=== PATIENT | male | born 1965 | race Caucasian/White ===

== ENCOUNTER 2023-02-18 02:46 | Day surgery (SDC) | payer OTHER, SELFPAY ==
[2023-02-10 11:58] VITALS: BMI 31.1
--- NOTE | 2023-02-17 12:11 | P.PNAN_ITS ---
Anes - Initial Pre Proc Eval Procedure: Operation Date: 02/18/23 09:00 Proposed Procedures p Colonoscopy - Filipe Patton MD Date/Time: 02/17/23 12:11 Surgeon: Filipe Patton MD Pre Op Diagnosis: family hx colon ca, hx colon polyps Patient Data Age: 57 Gender: M Height: 1.91 m Weight: 113 kg Allergies Allergy/AdvReac Type Severity Reaction Status Date / Time No Known Allergies Allergy Unknown Verified 02/18/23 08:02 Home Medications Medication Instructions Recorded Confirmed Type levothyroxine 175 mcg tablet 175 mcg PO DAILY 09/10/19 02/10/23 History (Synthroid) losartan 50 mg tablet 50 mg PO DAILY 09/10/19 02/10/23 History naproxen sodium 220 mg capsule 220 mg PO Q12H PRN Back Pain 09/10/19 02/10/23 History (Aleve) testosterone cypionate 200 mg/mL 200 mg IM [id number] 09/10/19 02/10/23 History intramuscular oil aspirin 81 mg tablet,delayed 81 mg PO DAILY 02/10/23 02/10/23 History release tamsulosin 0.4 mg capsule 0.4 mg PO DAILY 02/10/23 02/10/23 History Patient hx anesthesia problems: none Family hx anesthesia problems: none Results Review: All pre-operative results and documents have been reviewed as part of the pre-operative evaluation. [facility] Past Medical History Medical History (Updated 02/17/23 @ 19:42 by Filipe Patton MD) Hypertension Hypothyroidism Sleep apnea Surgical History Surgical History (Updated 09/14/19 @ 08:27 by Antoni Pearson MD) H/O arthroscopic knee surgery Family History Family History Other Family history of arthritis Hypertension Social History Social History Years smoked: 1 Smoking status: Former smoker Tobacco type: cigarettes Additional smoking assessment comments: smoked as a teenager Alcohol intake: current Living arrangements: with family Spiritual care concerns: No Anes - Eval Final PreProcedure Day of Procedure 02/17/23 12:11 Patient weight: obese Heart: regular rate and rhythm Lungs: clear to auscultation Airway: Mallampati scale class II Neurological: alert and oriented Last oral intake: >/= 8 hours ASA classification: III Emergent: no Anesthetic plan: proceed Anesthesia type and monitoring: general GIVS and standard monitoring Results Review: All pre-operative results and documents have been reviewed as part of the pre- operative evaluation. Informed Consent: The patient's anesthetic plan and its attendant risks and benefits were discussed with the patient/family/POA. Questions were solicited and answers provided to the satisfaction of the patient/family/POA.
--- NOTE | 2023-02-17 19:41 | PM.HPGS ---
History of Present Illness History of Present Illness Consent: Risks, benefits, and alternatives have been discussed and questions answered. Patient agrees to proceed with procedure. Chief complaint: family hx colon ca, hx colon polyps Narrative: Arun Rome is a 57 year old male referred for colon cancer screening. His father had colon Ca, and he had an adenoma removed 3 yrs ago Review of Systems Review of Systems: All systems reviewed & are unremarkable except as noted in HPI and below PMFSH Past Medical History Medical History Hypertension Hypothyroidism Sleep apnea Surgical History Surgical History H/O arthroscopic knee surgery Family History Family History Other Family history of arthritis Hypertension Social History Social History Years smoked: 1 Smoking status: Former smoker Tobacco type: cigarettes Additional smoking assessment comments: smoked as a teenager Alcohol intake: current Living arrangements: with family Spiritual care concerns: No Meds Home Medications and Allergies Home Medications Medication Instructions Recorded Confirmed Type levothyroxine 175 mcg tablet 175 mcg PO DAILY 09/10/19 02/10/23 History (Synthroid) losartan 50 mg tablet 50 mg PO DAILY 09/10/19 02/10/23 History naproxen sodium 220 mg capsule 220 mg PO Q12H PRN Back Pain 09/10/19 02/10/23 History (Aleve) testosterone cypionate 200 mg/mL 200 mg IM [id number] 09/10/19 02/10/23 History intramuscular oil aspirin 81 mg tablet,delayed 81 mg PO DAILY 02/10/23 02/10/23 History release tamsulosin 0.4 mg capsule 0.4 mg PO DAILY 02/10/23 02/10/23 History Allergies Allergy/AdvReac Type Severity Reaction Status Date / Time No Known Allergies Allergy Unknown Verified 02/18/23 08:02 Exam Const: General: alert Orientation/consciousness: patient oriented x3 Resp: Auscultation: clear to auscultation bilaterally Cardio: Rhythm: regular rhythm GI: GI Palp: Yes Soft to palpation and No Tenderness to palpation present (GI) Neuro: General: patient oriented x3 Assessment and Plan Assessment and plan (1) Colon cancer screening: Code(s): Z12.11 - Encounter for screening for malignant neoplasm of colon Status: Acute Assessment and Plan: Colonoscopy with possible biopsy or polypectomy or cautery or injection of substances.
[2023-02-18 08:03] VITALS: BP 159/89; PULSE 94; RESP 20; TEMP 36.4; O2SAT 99; BMI 30.7
[2023-02-18] MEDS: LACTATED RINGERS 1,000 ML 150 ML IV CONT (08:09)
[2023-02-18] MEDS: SIMETHICONE ORAL SUSPENSION 20 MG/0.3 ML 30 ML BOTTLE 0.6 ML IRRIGATION (08:51)
[2023-02-18 09:00] VITALS: BP 138/85; PULSE 90; RESP 20; O2SAT 99
[2023-02-18 09:10] VITALS: BP 146/85; PULSE 87; RESP 20; O2SAT 100
[2023-02-18 09:20] VITALS: BP 141/89; PULSE 82; RESP 17; O2SAT 100
== END 2023-02-18 09:25 | disposition home or self-care (01) ==
PROVIDERS: Visit Provider Internal Medicine Gastroenterology
PROC: 0DJD8ZZ Inspection of Lower Intestinal Tract, Via Natural or Artificial Opening Endoscopic (ICD-10-PCS; CPT 45378; principal; 2023-02-18 09:00)
DX: Z12.11 Encounter for screening for malignant neoplasm of colon (principal); K64.8 Other hemorrhoids; K57.30 Diverticulosis of large intestine without perforation or abscess without bleeding; Z86.010 Personal history of colon polyps; Z80.0 Family history of malignant neoplasm of digestive organs; Z79.82 Long term (current) use of aspirin; Z79.890 Hormone replacement therapy; I10 Essential (primary) hypertension; E03.9 Hypothyroidism, unspecified; G47.30 Sleep apnea, unspecified; Z87.891 Personal history of nicotine dependence; E66.9 Obesity, unspecified; Z68.30 Body mass index [BMI] 30.0-30.9, adult
CPT/HCPCS: 45378; J2704; J7120

== ENCOUNTER 2025-01-13 19:07 | Emergency (ER) | payer OTHER, SELFPAY ==
--- NOTE | 2025-01-13 19:09 | ED_ITS ---
HPI - Back Pain/Injury General Stated Complaint: severe back pain Time Seen by Provider: 01/13/25 19:09 Source: patient Mode of arrival: ambulatory Limitations: no limitations History of Present Illness HPI Narrative: Arun is a 59-year-old male patient presenting to the clinic today with complaints of back pain times. He reports Related Data Home Medications Medication Instructions Recorded Confirmed Last Taken Type levothyroxine 175 mcg tablet 175 mcg PO DAILY 09/10/19 02/10/23 02/17/23 History (Synthroid) losartan 50 mg tablet 50 mg PO DAILY 09/10/19 02/10/23 02/17/23 History naproxen sodium 220 mg capsule 220 mg PO Q12H PRN Back Pain 09/10/19 02/10/23 02/17/23 History (Aleve) testosterone cypionate 200 mg/mL 200 mg IM [id number] 09/10/19 02/10/23 02/17/23 History intramuscular oil aspirin 81 mg tablet,delayed 81 mg PO DAILY 02/10/23 02/10/23 02/17/23 History release tamsulosin 0.4 mg capsule 0.4 mg PO DAILY 02/10/23 02/10/23 02/17/23 History Allergies Allergy/AdvReac Type Severity Reaction Status Date / Time No Known Allergies Allergy Unknown Verified 02/18/23 08:02 Review of Systems Review of Systems: Pertinent positives per HPI. Patient denies any fever, chills, rash, headache, visual changes, dizziness, cough, runny nose, sore throat, shortness of breath, chest pain, palpitations, nausea, vomiting, diarrhea, constipation, abdominal pain, or any urinary issues. [facility] Past Medical History Medical History Hypothyroidism Sleep apnea Hypertension Surgical History Surgical History H/O arthroscopic knee surgery Family History Family History Other Family history of arthritis Hypertension Social History Social History Years smoked: 1 Smoking status: Former smoker Tobacco type: cigarettes Additional smoking assessment comments: smoked as a teenager Alcohol intake: current Living arrangements: with family Spiritual care concerns: No Comments At the time of my signature, I reviewed and agree with the nursing past medical, surgical, social, and family history. There is no relevant family history pertinent to the patient complaint. Exam Narrative: General: Well-developed, well nourished, in no apparent distress Head: Normocephalic, atraumatic. Cardio: Regular rate and rhythm, s1 and s2 normal, no murmur appreciated. Resp: Clear to auscultation bilaterally, no rhonchi, rales, wheezing or rubs. Musculoskeletal: No deformity, non-tender to palpation, grossly normal range of motion, muscle strength strong and equal in BLE. SLT negative, patellar reflexes 2/4 bilaterally, negative foot drop, normal gait and station Course Course Emergency Course: Portions of this record may have been created with voice recognition software. Level of Care: Express Care Visit Vital Signs Vital signs: Vital signs reviewed MDM - Back Pain/Injury MDM Narrative Medical decision making narrative: At the time of visit patient is resting comfortably on the exam table. Patient appears to be nontoxic. Plan: Supportive measures were discussed with the patient and they voiced understanding discharge instructions and agrees to treatment plan. Return precautions reviewed Differential Diagnosis Differential diagnosis: Likely lumbar radiculopathy, sciatica, strain of lumbar region, renal colic, pyelonephritis, thoracic back pain, AAA and discitis Discharge Plan Discharge Patient Language: Indonesian Prescriptions: No Action losartan 50 mg tablet 50 mg PO DAILY levothyroxine [Synthroid] 175 mcg tablet 175 mcg PO DAILY testosterone cypionate 200 mg/mL oil 200 mg IM [id number] naproxen sodium [Aleve] 220 mg Capsule 220 mg PO Q12H PRN (Reason: Back Pain) aspirin 81 mg tablet,delayed release (DR/EC) 81 mg PO DAILY tamsulosin 0.4 mg capsule 0.4 mg PO DAILY Follow-up/Referrals: Vane,Gabriele Gold MD [Primary Care Provider] - Quality NIHSS Nursing Documentation ED NIHSS nursing documentation: reviewed/agree
--- OUTSIDE RECORDS SUMMARY | 2025-01-13 19:09 | XMS_ITS | Encounter Summary ---
Author Organization [facility] Address [address] [place] [address] Care Team Providers Care Supervisor Anodizing Name Role Phone Gabriele Mendez MD Primary Care Provider [phone] Encounter Details Date Type Department Care Team (Late st Contact Info) Description 02/08/2022 Abstract [facility], [address] [address] Alondra Bean MA Social History Tobacco Use Types Packs/Day Years Used Date Smoking Tobacco: Former Smokeless Tobacco: Never Alcohol Use Standard Drinks/Week Comments No 0 (1 standard drink = 0.6 oz pur e alcohol) AUDIT-C Answer Date Recorded Frequency of Alcohol Consumption Never 10/24/2018 Average Number of Drinks Not on file 019 Frequency of Binge Drinking Not on file 09/30 PHQ-2 Answer Date Recorded PHQ-2 Score - If the patient scores above 3, please move on to questions 3-9 0 04/01/2021 Sex and Gender Information Value Date Recorded Sex Assigned at Not on file Legal Sex Male 9:21 AM CHEF DE CUISINE Gender Identity Not on file Sexual Orientation Not on file 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 [place], [place] [address] documented as of this encounter Procedures Procedure Name Priority Date/Time Associated Diagnosis Comments LIPID PANEL Routine 12/12/2024 LIPID PANEL Routine 02/05/2022 LIPID PANEL Routine 01/05/2021 documented in this encounter Results * LIPID PANEL (12/12/2024) CHOLESTEROL 120 TRIGLYCERIDES 80 HDL 46 LDL (CALCULATED) 58 NON HDL CHOLESTEROL 74 us Default History Genericprovider LABORATORY Edited Result - Final * LIPID PANEL (02/05/2022) CHOLESTEROL 179 HDL 52 TRIGLYCERIDES 68 NON HDL CHOLESTEROL 127 LDL (CALCULATED) 112 02/05/2022 us Doc [facility] Abstract LABORATORY Final Result * LIPID PANEL (01/05/2021) CHOLESTEROL Comment:ERROR DELETED 01/05/2021 us Doc [facility] Abstract LABORATORY Edited Resul t - Final documented in this encounter Visit Diagnoses Not on filedocumented in this encounter Additional Health Concerns Assessment Noted Time PHQ-9 Depression Total Score: 0 04/01/20 21 1:44 PM CDT documented as of this encounter Care Teams Supervisor Anodizing Relationship Specialty Start Date End Date Gabriele Mendez MD [address] [facility] [address] [place] [address] PCP - General FAMILY PRACTICE 08/16/17 documented as of this encounter
--- OUTSIDE RECORDS SUMMARY | 2025-01-13 19:09 | XMS_ITS | Continuity of Care Document ---
Author Organization [facility] Address [address] [facility] [address] [place] [address] Phone Care Team Providers Care Snowboard Designer Name Role Phone Nikhil Coates Unavailable Unavailable Procedures Procedure Date Eye Exam, New Patient Refraction Advance Directives Directive Yes / No Effective Date File Name No Information Encounters Encounter Description Practice Location Reason(s) For Visit Diagnoses Date Provider Providers Copied on Encounter [facility], [address], [place], [place], [id number], [place] tel:[phone] [facility] No Information 2[address] Jaxon Nuneshil. [address] [facility] [address], [address], [place]. tel:[phone] Family History Family Member Type Diagnosis Age At Onset No Information Payers Payer name Insurance type Covered libertarian ID Authoriza tion(s) [employer] PPO CI [id number] Social History Type Description Quantity Date Captured Comments Sex Male Smoking Status No Information Chief Complaint And Reason For Visit No Information Reason For Referral Reason For Referral No Information History Of Present Illness Encounter Date Complaint History Of Prese nt Illness No Information Functional Status Date Functional Assessmen t No Information Instructions Date Instruction Additional Infor mation No Information Assessments Type Assessment Date No Information Patient Care Teams Name Effective Dates (start - stop) Status Members No Information
--- OUTSIDE RECORDS SUMMARY | 2025-01-13 19:09 | XMS_ITS | Encounter Summary ---
Author Organization [facility] Address [address] [place] [address] Care Team Providers Care Deburring Machine Operator Name Role Phone Gabriele Mendez MD Primary Care Provider [phone] Encounter Details Date Type Department Care Team (Late st Contact Info) Description 03/08/2022 [employer] Message Enc [place] [facility] THREE [facility], [facility] [address] [place], [place] [phone] Nura Jo MD Three [facility]. 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 documented in this encounter Plan of Treatment Upcoming Encounters Date Type Department Care Team (Late st Contact Info) Description 12/03/2025 9:30 AM CDT Office Visit [facility] THREE [facility], [address] [place] [address] Nura Jo MD Three [facility]. [address] [place], [place] [phone] documented as of this encounter Visit Diagnoses Not on filedocumented in this encounter Additional Health Concerns Assessment Noted Time PHQ-9 Depression Total Score: 0 04/01/20 21 1:44 PM CDT documented as of this encounter Care Teams Deburring Machine Operator Relationship Specialty Start Date End Date Gabriele Mendez MD [address] [facility] [address] [place], [place] [phone] PCP - General FAMILY PRACTICE 08/16/17 documented as of this encounter
--- OUTSIDE RECORDS SUMMARY | 2025-01-13 19:09 | XMS_ITS | Encounter Summary ---
Author Organization [facility] Address [address] [place] [address] Care Team Providers Care Chassis Engineer Name Role Phone Gabriele Mendez MD Primary Care Provider [phone] Encounter Details Date Type Department Care Team (Late Contact Info) Description 05/18/2022 [employer] Message [employer] [facility], [facility] Provider Patient Amendment Request Social History Tobacco Use Types Packs/Day Years Used Date Smoking Tobacco: Former Cigarettes 0 08/29/1980 - 08/29/1982 Cigars Smokeless Tobacco: Never Comments:Haven't smoked sinc e 1982 Alcohol Use Standard Drinks/Week Comments No 0 (1 standard drink = 0.6 oz pur e alcohol) AUDIT-C Answer Date Recorded Frequency of Alcohol Consumption Never 10/24/2018 Average Number of Drinks Not on file 019 Frequency of Binge Drinking Not on file 09/30 PHQ-2 Answer Date Recorded PHQ-2 Score - If the patient scores above 3, please move on to questions 3-9 2 05/19/2022 Sex and Gender Information Value Date Recorded Sex Assigned at Not on file Legal Sex Male 9:21 AM CONCEPT ARTIST Gender Identity Not on file Sexual Orientation Not on file 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 No / Unsure 05/19/2022 9:00 AM CDT documented as of this encounter Plan of Treatment Upcoming Encounters Date Type Department Care Team (Late st Contact Info) Description 12/03/2025 9:30 AM CDT Office Visit [facility] [facility] THREE [facility], [address] [place] [address] Nura Jo MD Three [facility]. [address] [place], [place] [phone] documented as of this encounter Visit Diagnoses Not on filedocumented in this encounter Additional Health Concerns Assessment Noted Time PHQ-9 Depression Total Score: 0 04/01/20 21 1:44 PM CDT documented as of this encounter Care Teams Chassis Engineer Relationship Specialty Start Date End Date Gabriele Mendez MD [address] [facility] [address] [place], [place] [phone] PCP - General FAMILY PRACTICE 08/16/17 documented as of this encounter
--- OUTSIDE RECORDS SUMMARY | 2025-01-13 19:09 | XMS_ITS | Encounter Summary ---
Author Organization [facility] Address [address] [place] [address] Care Team Providers Care Water Valve Mechanic Name Role Phone Gabriele Mendez MD Primary Care Provider [phone] Encounter Details Date Type Department Care Team (Late st Contact Info) Description 01/19/2021 MyCPantheont Message Enc [facility] Family Medicine - [place] [address] [facility], [address] [place] [phone] Gabriele Mendez MD [address] [facility] [address] [place], [place] [phone] RE: Follow Up/Update Social History Tobacco Use Types Packs/Day Years Used Date Smoking Tobacco: Former Smokeless Tobacco: Never Alcohol Use Standard Drinks/Week Comments No 0 (1 standard drink = 0.6 oz pur e alcohol) AUDIT-C Answer Date Recorded Frequency of Alcohol Consumption Never 10/24/2018 Average Number of Drinks Not on file 019 Frequency of Binge Drinking Not on file 09/30 PHQ-2 Answer Date Recorded PHQ-2 Score 0 11/27/2018 Sex and Gender Information Value Date Recorded Sex Assigned at Not on file Legal Sex Male 9:21 AM PERSONAL CARER Gender Identity Not on file Sexual Orientation Not on file documented as of this encounter Plan of Treatment Upcoming Encounters Date Type Department Care Team (Late st Contact Info) Description 12/03/2025 9:30 AM CDT Office Visit [place] [facility] [facility] THREE [facility], [address] [place] [address] Nura Jo MD Three [facility]. [address] [place] [address] documented as of this encounter Visit Diagnoses Not on filedocumented in this encounter Care Teams Water Valve Mechanic Relationship Specialty Start Date End Date Gabriele Mendez MD [address] [facility] [address] [place] [address] PCP - General FAMILY PRACTICE 08/16/17 documented as of this encounter
--- OUTSIDE RECORDS SUMMARY | 2025-01-13 19:09 | XMS_ITS | Encounter Summary ---
Author Organization [facility] Address [address] [place] [address] Care Team Providers Care Ticket Sales Agent Name Role Phone Gabriele Mendez MD Primary Care Provider [phone] Encounter Details Date Type Department Care Team (Late Contact Info) Description 12/24/2021 MeBeam Message Enc [facility] [place] [address] [facility] [place] [phone] [facility], [facility] Provider controlled substance agreement Social History Tobacco Use Types Packs/Day Years [...] on file Legal Sex Male 9:21 AM ABSTRACT CLERK Gender Identity Not on file Sexual Orientation Not on file 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, [address] [place] [address] Nura Jo MD Three [facility]. [facility] [address] [place] [address] documented as of this encounter Visit Diagnoses Not on filedocumented in this encounter Additional Health Concerns Assessment Noted Time PHQ-9 Depression Total Score: 0 04/01/20 21 1:44 PM CDT documented as of this encounter Care Teams Ticket Sales Agent Relationship Specialty Start Date End Date Gabriele Mendez MD [address] [facility] [address] [place] [address] PCP - General FAMILY PRACTICE 08/16/17 documented as of this encounter
--- OUTSIDE RECORDS SUMMARY | 2025-01-13 19:09 | XMS_ITS | Encounter Summary ---
Author Organization [facility] Address [address] [place] [address] Care Team Providers Care Engraver Tire Mold Name Role Phone Gabriele Mendez MD Primary Care Provider [phone] Encounter Details Date Type Department Care Team (Late Contact Info) Description 07/06/2021 MyCChromaDext Message Enc [facility] Family Medicine - [place] [address] [facility], [address] [place] [phone] Gabriele Mendez MD [address] [facility] [address] [place], [place] [phone] RE: Follow Up/Update Social History Tobacco Use [...] on file Legal 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. [address] [place], [place] [phone] documented as of this encounter Visit Diagnoses Not on filedocumented in this encounter Additional Health Concerns Assessment Noted Time PHQ-9 Depression Total Score: 0 04/01/20 21 1:44 PM CDT documented as of this encounter Care Teams Engraver Tire Mold Relationship Specialty Start Date End Date Gabriele Mendez MD [address] [facility] [address] [place] [address] PCP - General FAMILY PRACTICE 08/16/17 documented as of this encounter
--- OUTSIDE RECORDS SUMMARY | 2025-01-13 19:09 | XMS_ITS | Encounter Summary ---
Author Organization [facility] Address [address] [place] [address] Care Team Providers Care Senior Software Development Manager Name Role Phone Gabriele Mendez MD Primary Care Provider [phone] Encounter Details Date Type Department Care Team (Late Contact Info) Description 12/13/2024 Results Follow-Up [facility] [address] Tammy Lemus, RN LIPID PANEL Social History Tobacco Use Types Packs/Day Years Used Date Smoking Tobacco: Former Cigarettes 0 08/29/1980 - 08/29/1982 Cigars Smokeless Tobacco: Never Comments:Haven't smoked sinc e 1982 Alcohol Use Standard Drinks/Week Comments Not Currently 0 (1 standard drink = 0.6 oz pure alcohol) Never drank heavily only an occasional beer and wine AUDIT-C Answer Date Recorded Frequency of Alcohol Consumption Never 10/24/2018 Average Number of Drinks Not on file 019 Frequency of Binge Drinking Not on file 09/30 PHQ-2 Answer Date Recorded Patient Health Questionnaire-2 Score 0 07/16/2024 Sex and Gender Information Value Date Recorded Sex Assigned at Not on file Legal Sex Male 9:21 AM CORRESPONDENCE REPRESENTATIVE Gender Identity Not on file Sexual Orientation Not on file 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 [facility] [address] [place] [address] documented as of this encounter Visit Diagnoses Not on filedocumented in this encounter Additional Health Concerns Assessment Noted Time PHQ-9 Depression Total Score: 0 04/01/20 21 1:44 PM CDT documented as of this encounter Care Teams Senior Software Development Manager Relationship Specialty Start Date End Date Gabriele Mendez MD [address] [facility] [address] [place] [address] PCP - General FAMILY PRACTICE 08/16/17 documented as of this encounter
--- OUTSIDE RECORDS SUMMARY | 2025-01-13 19:09 | XMS_ITS | Clinical Summary ---
Author Organization [facility] Address [address] [place] [address] Care Team Providers Care Jewelry Dipper Name Role Phone Gabriele Mendez MD Primary Care Provider [phone] Allergies No known active allergies Medications CPAP DME DEVICE [id number], use while [id number], VentrapragadaActive 018 Active acetaminophen (TYLENOL) 500 MG tablet Take 1 tablet (500 mg total) by mouth. 017 Active Vitamin D3 125 mcg TabIndications:Vi tamin D deficiency Take 1 tablet (5,000 Units total) by mouth daily. 90 tablet 3 024 Active Magnesium Citrate 125 MG CapIndications:Co nstipation Take 1 capsule by mouth daily. 90 capsule 1 024 Active tamsulosin (FLOMAX) 0.4 MG CapIndications:Be nign prostatic hyperplasia with urinary frequency Take 1 capsule (0.4 mg total) by mouth daily. 90 capsule 3 024 2024 Active losartan (COZAAR) 100 MG tabletIndications :Primary hypertension Take 1 tablet (100 mg total) by mouth daily. 90 tablet 3 024 Active BD INTEGRA SYRINGE 21G X 1-/2 3 ML MiscIndications:H ypogonadism, testicular Injection every 14 days 6 each 3 024 Active Ibuprofen-Acetami nophen (ADVIL DUAL ACTION) 125-250 MG Tab Activ e fish oil (OMEGA-3 FATTY ACID) 1200 MG Cap capsule Activ e ASTRAGALUS OR Active levothyroxine (SYNTHROID) 200 MCG tabletIndications :Acquired hypothyroidism Take 1 tablet (200 mcg total) by mouth every morning. 90 tablet 3 025 Active testosterone cypionate (DEPO-TESTOSTERON E) 200 MG/ML injectionIndicati ons:Hypogonadism, testicular Inject 1 mL (200 mg total) into the muscle every 14 (fourteen) days. 10 mL 025 Active rosuvastatin (CRESTOR) 20 MG tabletIndications :Dyslipidemia Take 1 tablet (20 mg total) by mouth nightly at bedtime. 30 tablet 2 025 Active amLODIPine (NORVASC) 5 MG tablet Take 1 tablet (5 mg total) by mouth daily. 90 tablet 3 025 Active Active Problems Problem Noted Date Diagnosed Date Acquired trigger finger of both middle fingers 0 05/10/2022 Dyslipidemia 11/09/2021 Breast lump 02/07/2020 Hypogonadism, testicular 08/16/2017 Hypothyroidism 08/16/2017 Obstructive sleep apnea, adult 08/16/2017 Osteoarthrosis 08/16/2017 Essential hypertension Resolved Problems Problem Noted Date Diagnosed Date Resolved Date High serum low density lipop rotein (LDL) cholesterol 10/27/2021 05/18/2022 Trigger middle finger of right hand 02/07/2020 05/10/2022 Hypertension 08/16/2017 05/10/2022 Encounters Date Type Department Care Team Description 12/13/2024 Results Follow-Up [facility] [place] [facility], [address] [address] Tammy Lemus, RN LIPID PANEL 11/27/2024 10:00 AM CDT Allied Health/Nurse Visit [facility] Family Medicine - [place] [address] [facility], [address] [place] [address] Gabriele Mendez MD Imm/Inj (Shingles vaccine) 11/27/2024 Travel 11/26/2024 8:45 AM CDT Office Visit [facility] [facility], [address] [address] Poncho Joy R, AUTHORIZER Follow Up 11/26/2024 Travel from Last 3 Months Immunizations Immunization Administration Dates Next Due Afluria 36 MONTHS+ (Prefille d Syringe IIV4) 06/10/2019 Fluzone 6 Months+ Quad (0.5 mL Prefilled Syringe) 05/18/2022 Hepatitis A (Havrix 1440 [address].U) 06/20/1997,1996 Influenza (Generic) 06/20/2003, 2,06/19/2001,09/27,08/07/1999,07/18/1998,07/01/1998 ,06/12/1997 Influenza Adult (Generic) 08/16/2017 MMR (MMRII) 05/28/1983 Polio Opv (Generic) 11/13/1984 Shingrix 11/27/2024,07/16/2024 Td (TDVAX) 06/20/1997 Td (Tenivac) preservative free 10/24/2018 Typhoid Vi Polysaccharide Va cc 25 Mcg/0.5Ml Im Soln 06/19/2001 Family History Medical History Relation Comments Diabetes Brother Hypertension Brother hypothyroidism Brother Cancer Father Colon Colon Cancer Father Early Father Colon cancer @ a ge 44 Cancer Mother Lung Early Mother Emphysema Mother Hypertension Mother Rheumatoid Arthritis Mother Stroke Mother hypothyroidism Mother malignant neoplasm of brain Mother Arthritis Sister 1 Rheumatoid Hypertension Sister 1 Rheumatoid Arthritis Sister 1 hypothyroidism Sister 1 Cancer Sister 2 Uterine Depression Sister 2 Relation Status Comments Brother Alive Father (Age 44) Mother (Age 69) Sister 1 Alive Sister 2 Social History Tobacco Use Types Packs/Day Years Used Date Smoking Tobacco: Former Cigarettes 0 08/29/1980 - 08/29/1982 Cigars Smokeless Tobacco: Never Tobacco Cessation:Counseling Given: Not Answered Comments:Haven't smoked since 1982 Alcohol Use Standard Drinks/Week Comments Not [...] on file 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 Gender Identity Not on file Sexual Orientation Not on file 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 file Not on file Not on file Last Filed Vital Signs Vital Sign Reading Time Taken Comments Blood Pressure 166/94 11/26/2024 8:41 AM CDT Pulse 115 11/26/2024 8:41 AM CDT Temperature 36.4 C (97.5 F) 07/16/2024 7:49 AM TRADEMARK AFFIXER Respiratory Rate 18 07/16/2024 7:49 AM TRADEMARK AFFIXER Oxygen Saturation 98% 11/26/2024 8:41 AM CDT Inhaled Oxygen Concentration - - Weight 126.6 kg (279 lb) 11/26/2024 8:41 AM CDT Height 185.4 cm (6' 1 ) 11/26/2024 8:41 AM CDT Body Mass Index 36.81 11/26/2024 8:41 AM CDT Plan of Treatment Upcoming Encounters Date Type Department Care Team (Late st Contact Info) Description 12/03/2025 9:30 AM CDT Office Visit [facility] THREE [facility], [facility] [address] [place], [place] [phone] Nura Jo MD [facility]. [facility] [address] [place], [place] [phone] Health Maintenance Due Date Last Done Comments Pneumococcal Vaccine: 50+ Years (1 of 1 - PCV) 2013 DTaP, Tdap and Td Vaccines (1 - Tdap) 10/25/2018 10/24/2018, 06/20/1997 COVID-19 Vaccine ( season) 2024 07/03/2021, 10/31/2020 PHQ-2 (Physician [place]) 08/29/2024 07/16/2024 Annual Physical 07/16/2025 07/16/2024, 10/0 09/2022, 05/18/2022, Additional history exists Colorectal Cancer Screening Colonoscopy (10 Years) 02/18/2033 02/18/2023, 08/29/2015 RSV Immunization or 60+ Years (1 - 1-dose 75+ series) 2038 Hepatitis C Completed 02/07/2020 Zoster Vaccines Completed 11/27/2024, 07/16/2024 Meningococcal B Vaccine Aged Out No l onger eligible based on patient's age to complete this topic Meningococcal Vaccine Aged Out No janelle myles eligible based on patient's age to complete this topic RSV Immunizations Under 20 Months Aged Out No longer eligible based on patient's age to complete this topic Procedures Procedure Name Priority Date/Time Associated Diagnosis Comments LIPID PANEL Routine 12/12/2024 COLONOSCOPY GENERIC (SCAN ORDER) 02/18/2023 HEPATITIS C ANTIBODY Routine 02/07/2020 9:00 AM CDT from Last 3 Months or Most Recently Relevant to Health Maintenance Results * LIPID PANEL (12/12/2024) CHOLESTEROL 120 TRIGLYCERIDES 80 HDL 46 LDL (CALCULATED) 58 NON HDL CHOLESTEROL 74 us Default History Genericprovider LABORATORY Edited Result - Final * COLONOSCOPY GENERIC (02/18/2023) 02/18/2023 us Doc [facility] Scanned SCANNING Final Resu lt * HEPATITIS C ANTIBODY (02/07/2020 9:00 AM CDT) HEPATITIS C AB NON-REACT GATO NON-REACT GATO [facility] SIGNAL TO CUTOFF 0.01 <1.00 [facility] Comment: HCV antibody was non-reactive. There is no laboratory evidence of HCV infection. In most cases, no further action is required. However, if recent HCV exposure is suspected, a test for HCV RNA (test code 55234) is suggested. For additional information please refer to http://education.ID AMERICA/faq/ITE32e5 (This link is being provided for informational/ educational purposes only.) 02/07/2020 9:00 AM CDT 02/07/2020 9:00 AM CDT Narrative [facility] - CORAL ORDERS - 02/11/2020 5:38 PM CDT FASTING:YES FASTING: YES Resulting Agency Comment Performing Organization Information: Site ID: [id number] Name: [facility] Address: [address] [address] Director: Jose Carrillo D.O., MPH us Gabriele Mendez MD LABORATORY Final Result [facility] [address] [place] [address], from Last 3 Months or Most Recently Relevant to Health Maintenance Insurance GENERIC - COMMERCIAL Care Teams Jewelry Dipper Relationship Specialty Start Date End Date Gabriele Mendez MD [address] [facility] [address] [place] [address] PCP - General FAMILY PRACTICE 08/16/17
--- OUTSIDE RECORDS SUMMARY | 2025-01-13 19:11 | XMS_ITS | Continuity of Care Document ---
Author Organization [facility] Address [address] [facility] [address] [place] [address] Phone Care Team Providers Care Pump House Operator Name Role Phone Nikhil Coates Unavailable Unavailable Procedures Procedure Date Eye Exam, New Patient Refraction Advance Directives Directive Yes / No Effective Date File Name No Information Encounters Encounter Description Practice Location Reason(s) For Visit Diagnoses Date Provider Providers Copied on Encounter [facility], [address], [place], [place], [id number], [place] tel:[phone] [facility] No Information 2-200 9 Jaxon Nuneshil. [address] [employer] [address], [place], [address], [place]. tel:[phone] Family History Family Member Type Diagnosis Age At Onset No Information Payers Payer name Insurance type Covered alliance party ID Authoriza tion(s) Aetna PPO CI [id number] Social History Type Description Quantity Date Captured [...]
== END 2025-01-13 19:18 | disposition left against medical advice (07) ==
PROVIDERS: Emergency Provider Nurse Practitioner Family; PCP Family Medicine
DX: Z53.21 Procedure and treatment not carried out due to patient leaving prior to being seen by health care provider (principal)
CPT/HCPCS: 99199

== ENCOUNTER 2025-01-13 19:33 | Emergency (ER) | payer OTHER, SELFPAY ==
--- NOTE | ~2025-01-13 | CT_ITS ---
CT abdomen pelvis wo con Ordering provider: Darling Clement History: 59 years Male with . severe back pain with L radiculopathy . Comparison: None. Technique: CT abdomen and pelvis without IV and without oral contrast. Automated exposure control and iterative reconstruction technique were employed. The dose-length product was 1528.61 mGy-cm. Findings: VISUALIZED LOWER CHEST: Left lower lobe 6 mm nodule is noted. 6 months follow-up CT is advised. Normal. UPPER ABDOMINAL ORGANS: Liver: Normal. Gallbladder: Normal. Spleen: Normal. Stomach/duodenum: Normal. Pancreas: Normal. Adrenals: Normal. Kidneys: Left parapelvic small renal cysts. PELVIC ORGANS: The bladder is normal. BOWEL AND MESENTERY: Colon: No evidence of diverticulitis.. Fecal material is loaded in the colon. No evidence of appendic itis. H Small Bowel: Normal. No obstruction. Peritoneum/mesentery: No free air or free fluid. No mesenteric lymphadenopathy. RETROPERITONEUM: Normal aorta. No retroperitoneal lymphadenopathy. MUSCULOSKELETAL: Superficial soft tissues: Bilateral fat containing inguinal hernias. Otherwise, The superficial soft tissues are normal. Bones: Age appropriate degenerative changes of the spine. Bilateral sacroiliacs. Bilateral hip osteoa rthritic changes. IMPRESSION: 1. No evidence of appendicitis, diverticulitis or intestinal obstruction. 2. 6 mm nodule in the left lower lobe. 6 months follow-up CT is advised. 3. Bilateral fat containing inguinal hernias. 4. Constipation. 5. Small left parapelvic renal cysts. Reviewed, dictated and finalized at location A.
--- OUTSIDE RECORDS SUMMARY | 2025-01-13 19:35 | XMS_ITS | Continuity of Care Document ---
Author Organization [facility] Address [address] [facility] [address] [place] [address] Phone Care Team Providers Care Heel Former Name Role Phone Nikhil Coates Unavailable Unavailable Procedures Procedure Date Eye Exam, New Patient Refraction Advance Directives Directive Yes / No Effective Date File Name No Information Encounters Encounter Description Practice Location Reason(s) For Visit Diagnoses Date Provider Providers Copied on Encounter [facility], [address], [place], [place], [address], [place] tel:[phone] [facility] No Information 2-200 9 Jaxon Nuneshil. [address] [employer] [facility] [address], [address], [place]. tel:[phone] Family History Family Member Type Diagnosis Age At Onset No Information Payers Payer name Insurance type Covered democrat ID Authoriza tion(s) Aetna PPO CI [id number] Social History Type Description Quantity Date Captured [...]
[2025-01-13 19:36] VITALS: BP 181/103; PULSE 125; RESP 20; TEMP 36.8; O2SAT 100
--- OUTSIDE RECORDS SUMMARY | 2025-01-13 23:27 | XMS_ITS | Encounter Summary ---
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 [place] [address] [place], [place] [phone] documented as of this encounter Visit Diagnoses Not on filedocumented in this encounter Additional Health Concerns Assessment Noted Time PHQ-9 Depression Total Score: 0 04/01/20 21 1:44 PM CDT documented as of this encounter Care Teams Table Top Tile Setter Relationship Specialty Start Date End Date Gabriele Mendez MD [address] [facility] [address] [place] [address] PCP - General FAMILY PRACTICE 08/16/17 documented as of this encounter
--- OUTSIDE RECORDS SUMMARY | 2025-01-13 23:27 | XMS_ITS | Encounter Summary ---
Author Organization [facility] Address [address] [place] [address] Care Team Providers Care Public Works Technician Name Role Phone Gabriele Mendez MD Primary Care Provider [phone] Encounter Details Date Type Department Care Team (Late Contact Info) Description 12/24/2021 Evgen Message Enc 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, [place] [address] [place] [address] Nura Jo MD Three [facility]. [facility] [address] [place] [address] documented as of this encounter Visit Diagnoses Not on filedocumented in this encounter Additional Health Concerns Assessment Noted Time PHQ-9 Depression Total Score: 0 04/01/20 21 1:44 PM CDT documented as of this encounter Care Teams Public Works Technician Relationship Specialty Start Date End Date Gabriele Mendez MD [address] [facility] [facility] [address] [place] [address] PCP - General FAMILY PRACTICE 08/16/17 documented as of this encounter
--- OUTSIDE RECORDS SUMMARY | 2025-01-13 23:27 | XMS_ITS | Encounter Summary ---
Author Organization [facility] Address [address] [place] [address] Care Team Providers Care Work Study Student Name Role Phone Gabriele Mendez MD Primary Care Provider [phone] Encounter Details Date Type Department Care Team (Late st Contact Info) Description 01/19/2021 MyCFantáxicot Message Enc [facility] Family Medicine - [place] [address], [address] [place] [phone] Gabriele Mendez MD [address] [facility] [address] [place], [place] [phone] RE: Follow Up/Update Social History Tobacco Use [...] on file Legal Sex Male 9:21 AM CATCHER PLUG Gender Identity Not on file Sexual Orientation Not on file documented as of this encounter Plan of Treatment Upcoming Encounters Date Type Department Care Team (Late st Contact Info) Description 12/03/2025 9:30 AM CDT Office Visit [facility] THREE [facility], [address] [place] [address] Nura Jo MD Three [facility]. [place] [address] [place] [address] documented as of this encounter Visit Diagnoses Not on filedocumented in this encounter Care Teams Work Study Student Relationship Specialty Start Date End Date Gabriele Mendez MD [address] [facility] [address] [place] [address] PCP - General FAMILY PRACTICE 08/16/17 documented as of this encounter
--- OUTSIDE RECORDS SUMMARY | 2025-01-13 23:27 | XMS_ITS | Continuity of Care Document ---
Author Organization [facility] Address [address] [facility] [address] [place] [address] Phone Care Team Providers Care Color Developer Name Role Phone Nikhil Coates Unavailable Unavailable Procedures Procedure Date Eye Exam, New Patient Refraction Advance Directives Directive Yes / No Effective Date File Name No Information Encounters Encounter Description Practice Location Reason(s) For Visit Diagnoses Date Provider Providers Copied on Encounter [facility], [address], [place], [place], [address], [place] tel:[phone] [facility] No Information 2-200 9 Jaxon Nuneshil. [address] [facility] [address], [place], [address], [place]. tel:[phone] Family History Family Member Type Diagnosis Age At Onset No Information Payers Payer name Insurance type Covered alliance party ID Authoriza tion(s) Aetna PPO CI [id number] Social History Type Description Quantity Date Captured [...]
--- OUTSIDE RECORDS SUMMARY | 2025-01-13 23:27 | XMS_ITS | Clinical Summary ---
Author Organization [facility] Address [address] [place] [address] Care Team Providers Care Tie Carrier Name Role Phone Gabriele Mendez MD Primary Care Provider [phone] Allergies No known active allergies Medications CPAP DME DEVICE [id number], use while [id number]-Aug-2017Mohan, VentrapragadaActive 018 Active acetaminophen (TYLENOL) 500 MG [...] Department Care Team Description 12/13/2024 Results Follow-Up [facility] [facility], [address] [address] Tammy Lemus, RN LIPID PANEL 11/27/2024 10:00 AM CDT Allied Health/Nurse Visit [facility] Family Medicine - [place] [address] [place] [address] Gabriele Mendez MD Imm/Inj (Shingles vaccine) 11/27/2024 Travel 11/26/2024 8:45 AM CDT Office Visit [facility] [facility], [address] [address] Poncho Joy R, TREE EXPERT Follow Up 11/26/2024 Travel from Last 3 [...] on file Legal 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 Gender Identity Not on file Sexual Orientation Not on file 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 [facility] [address] [place], [place] [phone] Health Maintenance Due Date Last Done Comments Pneumococcal Vaccine: 50+ Years (1 of 1 - PCV) 2013 DTaP, Tdap and Td Vaccines (1 - Tdap) 10/25/2018 10/24/2018, 06/20/1997 COVID-19 Vaccine ( season) 2024 07/03/2021, 10/31/2020 PHQ-2 (Physician [place]) 08/29/2024 07/16/2024 Annual Physical 07/16/2025 07/16/2024, 10/0 [...] HEPATITIS C AB NON-REACT GATO NON-REACT GATO [employer] [employer] [facility] SIGNAL TO CUTOFF 0.01 <1.00 [facility] Comment: HCV antibody was non-reactive. There is no laboratory evidence of HCV infection. In most cases, no further action is required. However, if recent HCV exposure is suspected, a test for HCV RNA (test code 81840) is suggested. For additional information please refer to http://education.Evocalize/faq/RSW56m5 (This link is being provided for informational/ educational purposes only.) 02/07/2020 9:00 AM CDT 02/07/2020 9:00 AM CDT Narrative [facility] - CORAL ORDERS - 02/11/2020 5:38 PM CDT FASTING:YES FASTING: YES Resulting Agency Comment Performing Organization Information: Site ID: [id number] Name: [facility] Address: [address] [address] Director: Jose Carrillo D.O., MPH us Gabriele Mendez MD LABORATORY Final Result [facility]EY [facility] [address] [place] [address], from Last 3 Months or Most Recently Relevant to Health Maintenance Insurance GENERIC - COMMERCIAL Care Teams Tie Carrier Relationship Specialty Start Date End Date Gabriele Mendez MD [address] [facility] [address] [place] [address] PCP - General FAMILY PRACTICE 08/16/17
--- OUTSIDE RECORDS SUMMARY | 2025-01-13 23:27 | XMS_ITS | Encounter Summary ---
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 [facility] [address] [place] [address] documented as of this encounter Visit Diagnoses Not on filedocumented in this encounter Additional Health Concerns Assessment Noted Time PHQ-9 Depression Total Score: 0 04/01/20 21 1:44 PM CDT documented as of this encounter Care Teams Industrial Manufacturing Technician Relationship Specialty Start Date End Date Gabriele Mendez MD [address] [facility] [address] [place] [address] PCP - General FAMILY PRACTICE 08/16/17 documented as of this encounter
--- OUTSIDE RECORDS SUMMARY | 2025-01-13 23:27 | XMS_ITS | Encounter Summary ---
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 [place], [place] [id number] documented as of this encounter Procedures Procedure [...] documented as of this encounter Care Teams Wood Buffer Relationship Specialty Start Date End Date Gabriele Mendez MD [address] [facility] [address] [place] [address] PCP - General FAMILY PRACTICE 08/16/17 documented as of this encounter
--- OUTSIDE RECORDS SUMMARY | 2025-01-13 23:27 | XMS_ITS | Encounter Summary ---
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 [address] [place], [place] [id number] documented as of this encounter Visit Diagnoses Not on filedocumented in this encounter Additional Health Concerns Assessment Noted Time PHQ-9 Depression Total Score: 0 04/01/20 21 1:44 PM CDT documented as of this encounter Care Teams Wealth Management Director Relationship Specialty Start Date End Date Gabriele Mendez MD [address] [facility] [address] [place], [place] [phone] PCP - General FAMILY PRACTICE 08/16/17 documented as of this encounter
--- OUTSIDE RECORDS SUMMARY | 2025-01-13 23:27 | XMS_ITS | Encounter Summary ---
Author Organization [facility] Address [address] [place] [address] Care Team Providers Care Real Estate Officer Name Role Phone Gabriele Mendez MD Primary Care Provider [phone] Encounter Details Date Type Department Care Team (Late st Contact Info) Description 03/08/2022 [employer] Message [facility], [facility] [address] [place], [place] [phone] Nura Jo MD Three [facility]. 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 [address] [place], [place] [phone] documented as of this encounter Visit Diagnoses Not on filedocumented in this encounter Additional Health Concerns Assessment Noted Time PHQ-9 Depression Total Score: 0 04/01/20 21 1:44 PM CDT documented as of this encounter Care Teams Real Estate Officer Relationship Specialty Start Date End Date Gabriele Menedz MD [address] [facility] [address] [place], [place] [phone] PCP - General FAMILY PRACTICE 08/16/17 documented as of this encounter
[2025-01-13] MEDS: oxyCODONE/ACETAMINOPHEN (*CRX) 5-325 MG TABLET 1 TABLET PO (23:32)
[2025-01-13] MEDS: predniSONE 20 MG TABLET 40 MG PO (23:32)
[2025-01-13] MEDS: diazePAM INJ (*CRX) 10 MG/2 ML SYRINGE 5 MG IM (23:33)
[2025-01-13 23:38] VITALS: BP 181/105; PULSE 116; RESP 16; O2SAT 99
[2025-01-14 00:53] LABS: Add Urine Microscopic? NO; Appearance Urine Clear (Clear); Bilirubin Urine Negative (Negative); Blood Urine Negative (Negative); Color Urine Yellow (Yellow); Glucose Urine UA Negative (Negative); Ketones Urine Trace mg/dL (Negative); Leukocyte Esterase Ur Negative LEU/UL (Negative); Nitrate Urine Negative (Negative); Protein Urine Negative (Negative); Specific Grav Ur 1.017 (1.001-1.035); Urobilinogen Urine 0.2 mg/dL (<2.0)
[2025-01-14 02:21] VITALS: BP 150/99; PULSE 90; RESP 16; O2SAT 98
[2025-01-14] MEDS: KETOROLAC 15 MG/ML VIAL (*BKC) IM (03:13)
--- NOTE | 2025-01-14 03:30 | ED_ITS ---
HPI - Back Pain/Injury General Chief Complaint: Back Pain/Injury Stated Complaint: extreme lower back pain. Time Seen by Provider: 01/13/25 23:11 History of Present Illness HPI Narrative: Patient has been having increasing low back pain for the last week, but earlier while mowing the lawn he bent and thinks that he tweaked his back because he started having severe pain that feels like it was going down his left leg. Related Data Home Medications Medication Instructions Recorded Confirmed Last Taken Type levothyroxine 175 mcg tablet 175 mcg PO DAILY 09/10/19 02/10/23 02/17/23 History (Synthroid) losartan 50 mg tablet 50 mg PO DAILY 09/10/19 02/10/23 02/17/23 History naproxen sodium 220 mg capsule 220 mg PO Q12H PRN Back Pain 09/10/19 02/10/23 02/17/23 History (Aleve) testosterone cypionate 200 mg/mL 200 mg IM A5ONVER 09/10/19 02/10/23 02/17/23 History intramuscular oil aspirin 81 mg tablet,delayed 81 mg PO DAILY 02/10/23 02/10/23 02/17/23 History release tamsulosin 0.4 mg capsule 0.4 mg PO DAILY 02/10/23 02/10/23 02/17/23 History Allergies Allergy/AdvReac Type Severity Reaction Status Date / Time No Known Allergies Allergy Unknown Verified 01/13/25 19:40 Review of Systems Review of Systems: All systems reviewed & are unremarkable except as noted in HPI and below PMFSH Past Medical History Medical History Hypothyroidism Sleep apnea Hypertension Surgical History Surgical History H/O arthroscopic knee surgery Family History Family History Other Family history of arthritis Hypertension Social History Social History Years smoked: 1 Smoking status: Former smoker Tobacco type: cigarettes Additional smoking assessment comments: smoked as a teenager Alcohol intake: current Living arrangements: with family Spiritual care concerns: No Exam Narrative: EXAMINATION OF ORGAN SYSTEMS/BODY AREAS: Constitutional: Vital signs per nursing GENERAL: Appears comfortable when in the chair but when asked to lean forward or stand up, starts yelping with pain HEAD: Normal with no signs of head trauma. EYES: EOMI, conjunctiva normal ENT: Hearing grossly intact LUNGS: Nonlabored breathing. HEART: [Regular rate and rhythm], normal and equal bilateral radial and DP pulses ABD: [Soft], [nontender to palpation] EXT: Normal range of motion SKIN: [No rashes or lesions.] NEURO: [Alert and oriented x 3. No gross focal sensory or strength deficits. Able to move his legs however has pain when he moves his legs] PSYCH: Normal affect Course Vital Signs Vital signs: Vital Signs Temperature 98.3 F 01/13/25 19:36 Pulse Rate 125 H 01/13/25 19:36 Respiratory Rate 20 01/13/25 19:36 Blood Pressure 181/103 H 01/13/25 19:36 Pulse Oximetry 100 01/13/25 19:36 Oxygen Delivery Room Air 01/13/25 19:36 Temperature 98.3 F 01/13/25 19:36 Pulse Rate 90 01/14/25 02:21 Respiratory Rate 16 01/14/25 02:21 Blood Pressure 150/99 H 01/14/25 02:21 Pulse Oximetry 98 01/14/25 02:21 Oxygen Delivery Room Air 01/13/25 19:36 MDM - Back Pain/Injury MDM Narrative Medical decision making narrative: ED COURSE AND MEDICAL DECISION MAKIN-year-old male with acute on chronic back pain; pain is worsened with movement of his leg and with bending over. Normal motor and sensory exam. No evidence of acute cord compression, osteomyelitis/discitis or cauda equina without saddle anesthesia, urinary retention/incontinence, numbness or weakness in lower extremities, fever, history of IV drug use, cancer or immunosuppression. Doubt AAA or aortic dissection without severe pain/discomfort at rest or any n eurovascular deficits. [[place] 5 mg and diazepam 5mg PO] given for symptomatic relief. CT is obtained. CT results discussed with patient, no obvious acute abnormality. I will trial course of steroids and give Toradol. On reevaluation, the symptoms are improved. Patient is able to rest more comfortably. He is now able to ambulate. [I discussed management of acute back pain in detail, explaining the need to remain active and the goals of pain control . Risks of using opiates were discussed with the patient.] Patient is given return precautions and instructed to come back at any point in time for worsening pain, fevers, weakness, difficulty walking, urinary or fecal incontinence. Patient expressed understanding of instructions. Lab Data Labs: Lab Results 01/14/25 Range/Units 00:44 Urine Color Yellow (Yellow) Urine Appearance Clear (Clear) Urine pH 7.0 (5.0-9.0) Ur Specific [place] 1.017 (1.001-1.035) Urine Protein Negative (Negative) mg/dL Urine Glucose (UA) Negative (Negative) mg/dL Urine Ketones Trace H (Negative) mg/dL Ur Blood (Man) Negative (Negative) Urine Nitrate Negative (Negative) Urine Bilirubin Negative (Negative) Urine Urobilinogen 0.2 (<2.0) mg/dL Leukocyte Esterase Rfl Negative (Negative) AMARILIS/UL Discharge Plan Discharge Clinical Impression: Lumbar radiculopathy, Acute exacerbation of chronic low back pain Patient Disposition: Home Condition: Stable Instructions: Acute Low Back Pain (ED), Lumbar Radiculopathy (ED) Additional Instructions: Please follow up with your doctor; you can always return for any further issues especially if you have any worsening pain, are not able to ambulate, have any new numbness or weakness going down either leg, or anything else concerning. Patient Language: Frisian Prescriptions: New ketorolac 10 mg tablet 10 mg PO Q6H PRN (Reason: pain) Qty: 20 0RF Rx Instructions: maximum total duration of 5 days from all oral, intranasal, or parenteral formulations. Take this INSTEAD of aleve or advil; do not take any other NSAIDs while on this medication. prednisone 20 mg tablet 40 mg PO DAILY 4 Days Qty: 8 0RF acetaminophen [Tylenol Extra Strength] 500 mg tablet 1,000 mg PO Q6H PRN (Reason: pain) Qty: 50 0RF methocarbamol 750 mg tablet 750 mg PO TID PRN (Reason: muscle spasm) Qty: 30 0RF lidocaine 5 % adhesive patch,medicated 1 patch topical DAILY Qty: 15 0RF Rx Instructions: leave on most painful area for up to 12 hrs No Action losartan 50 mg tablet 50 mg PO DAILY levothyroxine [Synthroid] 175 mcg tablet 175 mcg PO DAILY testosterone cypionate 200 mg/mL oil 200 mg IM [id number] naproxen sodium [Aleve] 220 mg Capsule 220 mg PO Q12H PRN (Reason: Back Pain) aspirin 81 mg tablet,delayed release (DR/EC) 81 mg PO DAILY tamsulosin 0.4 mg capsule 0.4 mg PO DAILY Follow-up/Referrals: Vanessa,Gabriele Gold MD [Primary Care Provider] -
== END 2025-01-14 03:59 | disposition home or self-care (01) ==
PROVIDERS: Emergency Provider Emergency Medicine; PCP Family Medicine
DX: M54.16 Radiculopathy, lumbar region (principal); G89.29 Other chronic pain; E03.9 Hypothyroidism, unspecified; I10 Essential (primary) hypertension; Z87.891 Personal history of nicotine dependence
CPT/HCPCS: 74176; 81003; 96372; 99284; A9270; J1885; J3360; J7512